=== PATIENT | male | born 1960 | race Caucasian/White ===

== ENCOUNTER 2017-03-21 13:21 | Emergency (ER) | payer BC ==
--- NOTE | 2017-03-21 14:22 | RAD ---
INDICATION: Headaches. Visual disturbance. COMPARISON: None TECHNIQUE: Noncontrast axial source images were acquired from the skull base to the vertex. FINDINGS: Ventricles/sulci: The ventricles and cisterns are normal in size and configuration for age. Brain parenchyma: There is no focal parenchymal finding, evidence of intracranial mass, or intracranial mass effect. Intracranial hemorrhage:None. Extra-axial spaces: There are no abnormal extra axial fluid collections or evidence of extra-axial mass. Calvarium: There is no calvarial fracture or other calvarial abnormality. Scalp: There is no evidence of scalp or extracalvarial soft tissue abnormality. Paranasal sinuses/mastoid: There is minor left ethmoid sinus mucosal thickening. Other: None. IMPRESSION: No intracranial abnormalities. Minor left ethmoid sinus mucosal thickening
[2017-03-21] MEDS ORDERED: Aspirin Low Dose CHEW TAB* 81 MG PO ONE (15:36)
--- NOTE | 2017-03-21 16:34 | RAD ---
INDICATION: Dizziness. COMPARISON: There are no prior studies available for comparison. TECHNIQUE: Dual-energy PA and lateral views of the chest were obtained. FINDINGS: The heart is within normal limits in size. Mediastinal and hilar contours appear within normal limits. The lungs are clear. No pleural effusion is present. IMPRESSION: NO EVIDENCE FOR ACTIVE CARDIOPULMONARY DISEASE.
[2017-03-21 16:40] LABS: Hematocrit 48 % (42-52); Hemoglobin 16.3 g/dl (14.0-18.0); Mean Corpuscular HGB Conc 34 g/dl (31-36); Mean Corpuscular Hemoglobin 30 pg (27-31); Mean Corpuscular Volume 87 fL (80-94); Mean Platelet Volume 9 um3 (7.4-10.4); Red Blood Count 5.52 10^6/ul (4.0-5.4); Red Cell Distribution Width 13 % (10.5-15); White Blood Count 8.4 10^3/ul (3.5-10.8)
[2017-03-21] MEDS ORDERED: NS 0.9% 1000 ML* 1,000 ML IV ONE (16:48)
[2017-03-21 16:49] LABS: Albumin 4.4 g/dL (3.2-5.2); BUN/Creatinine Ratio 16.5 (8-20); Calcium 9.4 mg/dL (8.6-10.3); EGFR Non-African American 80.1 (>60); Globulin 2.6 g/dL (2-4); Potassium 4.4 mmol/L (3.5-5.0); Total Bilirubin 0.5 mg/dL (0.2-1.0)
[2017-03-21] MEDS ORDERED: Acetaminophen TAB* 325 MG PO ONE (17:09)
[2017-03-21 17:59] VITALS: BP 119/77
--- NOTE | 2017-04-06 16:31 | ED ---
Julian Felton Anna, scribed for Ndubuisi,Rashel Kirk MD on 03/21/17 at 1709 . Neurological HPI - HPI Summary HPI Summary: Patient is a 56 y/o male coming to [facility] presenting with the sudden onset of vision changes that began at 1150 today. He noticed light, sparkly spots in his vision in both eyes. This lasted for 30 minutes before it resolved. No blackening of his visual davies, no LOC. Pt had an MRI done on 03/05/2017 and has a standing appointment with a neurologist in one month. Denies known head trauma. Denies palpitations, CP, SOB, syncope. He had vertigo three months ago that lasted a few hours. But none today. Denies a history of migraines. He is six days into a course of Abx for sinusitis. He attributes this mold exposure at his home. Patient medications were reviewed this visit. - History of Current Complaint Chief Complaint: EDHeadache Stated Complaint: FISUAL DISTURBANCE/DIZZY Time Seen by Provider: 03/21/17 16:45 Hx Obtained From: Patient, Family/Director Equipment - accompanied by Onset/Duration: Sudden Onset, Started hours ago, Resolved Onset Severity: Moderate Current Severity: Moderate Pain Intensity: 3 Pain Scale Used: 0-10 Numeric - Allergy/Home Medications Allergies/Adverse Reactions: Allergies Allergy/AdvReac Type Severity Reaction Status Date / Time No Known Allergies Allergy Verified 02/03/17 10:07 PMH/Surg Hx/FS Hx/Imm Hx Endocrine/Hematology History: Denies: Hx Diabetes Cardiovascular History: Denies: Hx Hypertension, Hx Pacemaker/ICD History: Denies: Hx Renal Disease Sensory History: Denies: Hx Hearing Aid Psychiatric History: Denies: Hx Panic Disorder Infectious Disease History: Denies: Traveled Outside the [place] in Last 30 Days - Family History Known Family History: Negative: Respiratory Disease - Social History Lives: With Family Alcohol Use: None Hx Substance Use: No Substance Use Type: Reports: None Hx Tobacco Use: No Smoking Status (MU): Never Smoked Tobacco Review of Systems Positive: Fatigue Positive: Blurred Vision Negative: Palpitations, Chest Pain Neurological: Other Positive: Headache. Negative: Syncope All Other Systems Reviewed And Are Negative: Yes Physical Exam Triage Information Reviewed: Yes Vital Signs On Initial Exam: Initial Vitals Temp Pulse Resp BP Pulse Ox 98.1 F 72 18 148/86 100 03/21/17 13:22 03/21/17 13:22 03/21/17 13:22 03/21/17 13:22 03/21/17 13:22 Vital Signs Reviewed: Yes Appearance: Positive: Well-Appearing, No Pain Distress, Well-Nourished Skin: Positive: Warm, Skin Color Reflects Adequate Perfusion, Dry Head/Face: Positive: Normal Head/Face Inspection Eyes: Positive: EOMI, CINTHYA, Conjunctiva Clear ENT: Positive: Pharynx normal, TMs normal Neck: Positive: Supple, Nontender Respiratory/Lung Sounds: Positive: Clear to Auscultation, Breath Sounds Present. Negative: Rales, Rhonchi, Wheezes Cardiovascular: Positive: RRR, Pulses are Symmetrical in both Upper and Lower Extremities, S1, S2. Negative: Murmur, Rub, Other - no gallops Abdomen Description: Positive: Nontender, Soft. Negative: Distended, Guarding, Other: - no rebound Bowel Sounds: Positive: Present Musculoskeletal: Positive: Normal, Strength/ROM Intact Neurological: Positive: Normal, Sensory/Motor Intact, Alert, Oriented to Person Place, Time, CN Intact II-III. Negative: Cerebellar Dysfunction Psychiatric: Positive: Affect/Mood Appropriate Diagnostics - Vital Signs Vital Signs Temp Pulse Resp BP Pulse Ox 03/21/17 15:35 97.9 F 67 16 127/69 100 03/21/17 14:52 97.9 F 69 18 117/75 100 03/21/17 13:22 98.1 F 72 18 148/86 100 - Laboratory Lab Results: Lab Results 03/21/17 03/21/17 03/21/17 Range/Units 16:15 16:15 16:15 WBC 8.4 (3.5-10.8) 10^3/ul RBC 5.52 H (4.0-5.4) 10^6/ul Hgb 16.3 (14.0-18.0) g/dl Hct 48 (42-52) % MCV 87 (80-94) fL MCH 30 (27-31) pg MCHC 34 (31-36) g/dl RDW 13 (10.5-15) % Plt Count 199 (150-450) 10^3/ul MPV 9 (7.4-10.4) um3 Neut % (Auto) 69.0 (38-83) % Lymph % (Auto) 22.7 L (25-47) % Hunt % (Auto) 6.0 (1-9) % Eos % (Auto) 1.8 (0-6) % Baso % (Auto) 0.5 (0-2) % Absolute Neuts (auto) 5.8 (1.5-7.7) 10^3/ul Absolute Lymphs (auto) 1.9 (1.0-4.8) 10^3/ul Absolute Monos (auto) 0.5 (0-0.8) 10^3/ul Absolute Eos (auto) 0.2 (0-0.6) 10^3/ul Absolute Basos (auto) 0 (0-0.2) 10^3/ul Absolute Nucleated RBC 0.01 10^3/ul Nucleated RBC % 0.1 Sodium 138 (133-145) mmol/L Potassium 4.4 (3.5-5.0) mmol/L Chloride 103 (101-111) mmol/L Carbon Dioxide 31 (22-32) mmol/L Anion Gap 4 (2-11) mmol/L BUN 16 (6-24) mg/dL Creatinine 0.97 (0.67-1.17) mg/dL Est GFR ( Amer) 103.0 (>60) Est GFR (Non-Af Amer) 80.1 (>60) BUN/Creatinine Ratio 16.5 (8-20) Glucose 99 (70-100) mg/dL Lactic Acid 0.9 (0.5-2.0) mmol/L Calcium 9.4 (8.6-10.3) mg/dL Total Bilirubin 0.50 (0.2-1.0) mg/dL AST 18 (13-39) U/L ALT 19 (7-52) U/L Alkaline Phosphatase 38 (34-104) U/L Troponin I 0.00 (<0.04) ng/mL Total Protein 7.0 (6.4-8.9) g/dL Albumin 4.4 (3.2-5.2) g/dL Globulin 2.6 (2-4) g/dL Albumin/Globulin Ratio 1.7 (1-3) Result Diagrams: 03/21/17 16:15 03/21/17 16:15 Lab Statement: Any lab studies that have been ordered have been reviewed, and results considered in the medical decision making process. - Radiology CXR Xray Interpretation: No Acute Changes Radiology Interpretation Completed By: Radiologist - CT Brain CT CT Interpretation: No Acute Changes CT Interpretation Completed By: Radiologist - IMPRESSION: No intracranial abnormalities. Minor left ethmoid sinus mucosal thickening - EKG 1556 Cardiac Rate: NL - 61 bpm EKG Rhythm: Sinus Rhythm EKG Interpretation: No acute ischemic changes. Re-Evaluation - Re-Evaluation First Eval Re-Evaluation Time: 17:52 Change: Improved Comment: Discussed results and plan of care with patient and family. Patient and family are agreeable with plan. Course/Dx - Course Assessment/Plan: Patient is a 56 y/o male coming to [facility] presenting with the sudden onset of vision changes that began at 1150 today. This has resolved. Brain CT reveals minor left ethmoid sinus mucosal thickening but no intracranial abnormalities. CXR reveals no acute changes. EKG reveals NSR at 61bpm with no acute changes. Pt will be discharged home with follow up from neurology. Pt currently on abx for sinusitis. - Diagnoses Provider Diagnoses: Headache, Transient visual disturbance Discharge - Discharge Plan Condition: Stable Disposition: HOME Patient Education Materials: Acute Headache (ED), Blurred Vision (ED), Visual Floaters (ED) Referrals: Alysia La MD [Primary Care Provider] - Alvino Julian MD [Medical Doctor] - Additional Instructions: Follow up with primary care physician within 48 hours and with neurology as scheduled. Return to the Emergency Department for new or worsening symptoms. The documentation as recorded by the Julian kilpatrick Anna accurately reflects the service I personally performed and the decisions made by Melina lopez Afoma Frances, MD.
== END 2017-03-21 18:05 | disposition home or self-care (01) ==
LOC: ED 13:21
DX: R51 Headache (principal); H53.8 Other visual disturbances; R53.83 Other fatigue; H53.9 Unspecified visual disturbance
CPT/HCPCS: 36415; 70450; 71020; 80053; 83605; 84484; 85025; 93005; 99282